=== PATIENT | female | born 1990 | race American Indian/Alaskan Native ===

== ENCOUNTER 2016-11-30 00:28 | Emergency (ER) | payer SELFPAY ==
[2016-11-30 00:49] VITALS: BP 122/80
[2016-11-30 01:26] LABS: Mean Corpuscular HGB Conc 33 % (30-34); Mean Corpuscular Hemoglobin 26 pg (28-32); Mean Corpuscular Volume 81 fl (79-97); Platelet Count 166 K/mm3 (140-440); Red Blood Count 4.94 M/mm3 (3.65-5.03); Red Cell Distribution Width 13.9 % (13.2-15.2); White Blood Count 13.1 K/mm3 (4.5-11.0)
[2016-11-30 01:43] LABS: Alanine Aminotransferase 8 units/L (7-56); Albumin/Globulin Ratio 1.1 %; Alkaline Phosphatase 42 units/L (35-129); Anion Gap 22 mmol/L; BUN/Creatinine Ratio 23.75; Bilirubin,Total 0.4 mg/dL (0.1-1.2); Blood Urea Nitrogen 19 mg/dL (7-17); Calcium 9.3 mg/dL (8.4-10.2); Carbon Dioxide 23 mmol/L (22-30); Chloride 101.1 mmol/L (98-107); Glucose 98 mg/dL (65-100); Lipase 16 units/L (13-60); Potassium 4.6 mmol/L (3.6-5.0); Sodium 141 mmol/L (137-145); Total Protein 7.6 g/dL (6.3-8.2)
[2016-11-30 02:15] LABS: Basophils % (Manual) 0 % (0.0-1.8); Blastocytes % (Manual) 0 %; Eosinophils % (Manual) 0 % (0.0-4.3)
[2016-11-30 02:16] LABS: Anisocytosis 1+; Diff Status Complete; Hypochromasia Few
--- NOTE | 2016-12-04 00:53 | ED Elopement Review ---
ED Pt Elopement review - Results review Lab results: Laboratory Tests 11/30/16 11/30/16 01:00 01:00 WBC 13.1 H RBC 4.94 Hgb 13.0 Hct 40.0 MCV 81 MCH 26 L MCHC 33 RDW 13.9 Plt Count 166 Add Manual Diff Complete Total Counted 100 Seg Neutrophils % Float Tender Seg Neuts % (Manual) 87.0 H Band Neutrophils % 6.0 Lymphocytes % (Manual) 6.0 L Reactive Lymphs % (Man) 0 Monocytes % (Manual) 1.0 Eosinophils % (Manual) 0 Basophils % (Manual) 0 Metamyelocytes % 0 Myelocytes % 0 Promyelocytes % 0 Blast Cells % 0 Nucleated RBC % Not Reportable Seg Neutrophils # Man 11.4 H Band Neutrophils # 0.8 Lymphocytes # (Manual) 0.8 L Abs React Lymphs (Man) 0.0 Monocytes # (Manual) 0.1 Eosinophils # (Manual) 0.0 Basophils # (Manual) 0.0 Metamyelocytes # 0.0 Myelocytes # 0.0 Promyelocytes # 0.0 Blast Cells # 0.0 WBC Morphology Not Reportable Hypersegmented Neuts Not Reportable Hyposegmented Neuts Not Reportable Hypogranular Neuts Not Reportable Smudge Cells Not Reportable Toxic Granulation Not Reportable Toxic Vacuolation Not Reportable Dohle Bodies Not Reportable Pelger-Huet Anomaly Not Reportable Beatrice Rods Not Reportable Platelet Estimate Appears normal Clumped Platelets Not Reportable Plt Clumps, EDTA Not Reportable Large Platelets Not Reportable Giant Platelets Not Reportable Platelet Satelliting Not Reportable Plt Morphology Comment Not Reportable RBC Morphology Not Reportable Dimorphic RBCs Not Reportable Polychromasia Not Reportable Hypochromasia Few Poikilocytosis Not Reportable Anisocytosis 1+ Microcytosis Not Reportable Macrocytosis Not Reportable Spherocytes Not Reportable Pappenheimer Bodies Not Reportable Sickle Cells Not Reportable Target Cells Not Reportable Tear Drop Cells Not Reportable Ovalocytes Not Reportable Helmet Cells Not Reportable Santos-Wray Bodies Not Reportable [place] Rings Not Reportable Rudyard Cells Not Reportable Bite Cells Not Reportable Crenated Cell Not Reportable Elliptocytes Not Reportable Acanthocytes (Spur) Not Reportable Rouleaux Not Reportable Hemoglobin C Crystals Not Reportable Schistocytes Not Reportable Malaria parasites Not Reportable Pilo Bodies Not Reportable Hem Pathologist Commnt No Sodium 141 Potassium 4.6 Chloride 101.1 Carbon Dioxide 23 Anion Gap 22 BUN 19 H Creatinine 0.8 Estimated GFR > 60 BUN/Creatinine Ratio 23.75 Glucose 98 Calcium 9.3 Total Bilirubin 0.4 AST 15 ALT 8 Alkaline Phosphatase 42 Total Protein 7.6 Albumin 4.0 Albumin/Globulin Ratio 1.1 Lipase 16 - Call Back decision Pt Call Back Decision: No action required
== END 2016-11-30 04:34 | disposition left against medical advice (07) ==
LOC: ED 00:28
DX: R11.10 Vomiting, unspecified (principal); R39.198 Other difficulties with micturition; Z53.21 Procedure and treatment not carried out due to patient leaving prior to being seen by health care provider
CPT/HCPCS: 36415; 80053; 83690; 85007; 85025